=== PATIENT | male | born 1950 | race Caucasian/White ===

== ENCOUNTER 2017-11-27 08:45 | Day surgery (SDC) | payer MEDICARE, OTHER ==
[2017-11-23 08:56] VITALS: BMI 28.3
[~2017-11-27 08:45] MED LIST: LACTATED RINGERS 1,000 ML IV SCH
[2017-11-27 09:07] VITALS: TEMP 97.4
[2017-11-27] MEDS ORDERED: LIDOCAINE 1% 20 ML VIAL (10MG/ML) FOR IV START INTRADERMA ONE (09:18)
[2017-11-27] MEDS ORDERED: LIDOCAINE 1% INJ 10MG/ML (20 ML MDV) ONE (09:45)
[2017-11-27] MEDS ORDERED: PROPOFOL 10 MG/ML 20 ML VIAL IV ONE (09:45)
--- NOTE | 2017-11-27 10:14 | P.PCN ---
Date of Procedure: 11/27/17 Procedure(s) Performed: Procedure: Total colonoscopy. Preoperative diagnosis: Blood in the stools. Postoperative diagnosis: Exam within normal limits. Preparation: HalfLytely prep. Sedation: Was provided by anesthesia. Brief clinical history: The patient is 67-year-old male who is scheduled for this evaluation for finding of blood in his stools. He had no prior examination or family history of colon cancer. At this time, he has no abdominal complaints, bleeding or anemia. Procedure: With the patient on his left lateral decubitus position and after informed consent and adequate sedation, the perianal area was inspected and it did not show any fissures or fistulas. There were no masses felt on digital rectal examination. The Olympus CFQ 160L video colonoscope was then inserted in the rectum in the usual fashion and advanced to the cecum. The mucosa appeared healthy. No polyps or tumors were seen or any obvious pathology. I retroflexed the endoscope in the rectum before the endoscope was withdrawn. The patient tolerated the procedure well. Plan: The patient was reassured. He will follow-up with you as planned and I recommended repeat exam in 10 years.
[2017-11-27 10:23] VITALS: RESP 18
[2017-11-27 10:44] VITALS: BP 134/65; PULSE 71
== END 2017-11-27 11:23 | disposition home or self-care (01) ==
LOC: ORWHC2ENDO 08:45
DX: K92.1 Melena (principal); F17.210 Nicotine dependence, cigarettes, uncomplicated
CPT/HCPCS: 45378; J2001; J2704

== ENCOUNTER 2018-08-03 10:19 | Emergency (ER) | payer MEDICARE ==
[2018-08-03 10:26] VITALS: RESP 18
--- NOTE | 2018-08-03 10:49 | ED ---
Back Pain HPI - General Chief Complaint: Back Pain/Injury Stated Complaint: Back pain Time Seen by Provider: 08/03/18 10:38 Source: patient, RN notes reviewed, old records reviewed Limitations: no limitations - History of Present Illness Initial Comments: 68 showed mild history of chronic back pain presents emergency room stay with acute lower back pain rating on right leg. Patient reports symptoms started last night. He denies falls or trauma. Patient has no fevers, chills, abdominal pain, and denies saddle anestheisas. Patient reports he previously received injections into the back for pain relief, last one was in 2011. Patient denies any recent fever, chills, shortness of breath, chest pain, back pain, abdominal pain, nausea vomiting, numbness or tingling, dysuria or hematuria, constipation or diarrhea, headaches or visual changes, or any other current symptoms - Related Data Home Medications Medication Instructions Recorded Confirmed Acetaminophen/Diphenhydramine 1 tab PO HS PRN 08/03/18 08/03/18 [Tylenol PM Extra Strength] Ibuprofen [Motrin Ib] 800 mg PO TID PRN 08/03/18 08/03/18 Previous Rx's Medication Instructions Recorded Acetaminophen-Codeine 300-30mg 1 tab PO Q6H PRN 3 Days #12 tablet 08/03/18 [Tylenol w/codeine #3] Cyclobenzaprine [Flexeril] 10 mg PO TID #15 tab 08/03/18 Dexamethasone 0.75 mg PO DAILY #12 tab 08/03/18 Ibuprofen 600 mg PO TID #20 tablet 08/03/18 Allergies Allergy/AdvReac Type Severity Reaction Status Date / Time No Known Allergies Allergy Verified 08/03/18 10:50 Review of Systems ROS Statement: Those systems with pertinent positive or pertinent negative responses have been documented in the HPI. ROS Other: All systems not noted in ROS Statement are negative. Past Medical History Past Medical History: No Reported History Additional Past Medical History / Comment(s): chronic back pain History of Any Multi-Drug Resistant Organisms: None Reported Past Surgical History: Hernia Repair Additional Past Surgical History / Comment(s): UMBILICAL HERNIA REPAIR, TESTICLE SURGERY,VASECTOMY,INGUINAL HERNIA Past Anesthesia/Blood Transfusion Reactions: No Reported Reaction Past Psychological History: No Psychological Hx Reported Smoking Status: Current every day smoker Past Alcohol Use History: None Reported Past Drug Use History: None Reported - Past Family History Mother Family Medical History: No Reported History General Exam - General Exam Comments Initial Comments: 68 year old male. Moderate discomfort. Standing due to pain. Limitations: no limitations General appearance: alert Head exam: Present: atraumatic, normocephalic, normal inspection Eye exam: Present: normal appearance, PERRL, EOMI. Absent: scleral icterus, conjunctival injection, periorbital swelling ENT exam: Present: normal exam, mucous membranes moist Neck exam: Present: normal inspection. Absent: tenderness, meningismus, lymphadenopathy Respiratory exam: Present: normal lung sounds bilaterally. Absent: respiratory distress, wheezes, rales, rhonchi, stridor Cardiovascular Exam: Present: regular rate, normal rhythm, normal heart sounds. Absent: systolic murmur, diastolic murmur, rubs, gallop, clicks GI/Abdominal exam: Present: soft, normal bowel sounds. Absent: distended, tenderness, guarding, rebound, rigid Extremities exam: Present: normal inspection, full ROM, normal capillary refill. Absent: tenderness, pedal edema, joint swelling, calf tenderness Back exam: Present: normal inspection Neurological exam: Present: alert, oriented X3, CN II-XII intact Psychiatric exam: Present: normal affect, normal mood Skin exam: Present: warm, dry, intact, normal color. Absent: rash Course Vital Signs 08/03/18 10:24 Temperature 98.4 F Pulse Rate 108 H Respiratory 18 Rate Blood Pressure 192/89 O2 Sat by Pulse 99 Oximetry Medical Decision Making - Medical Decision Making 68-year-old male presents transferred stable acute lower back pain radiating down the right leg. Symptoms started last night. No falls or trauma. Patient had significant lumbar tenderness and sciatic notch tenderness. He is given IM Toradol and Decadron and morphine for pain. He is resting comfortably in bed at this time. X-rays of the lumbar spine were completed. This negative for any acute process. There is a T 12 age-indeterminate compression deformity noted. He has no significant tenderness at this time. Patient has been given prescription for short course of steroids plus relaxers and pain medication. - Radiology Data Radiology results: report reviewed fracture or malalignment seen within the lumbar spine. Extensive multilevel degenerative disease noted. Mild age-indeterminate compression deformity of T12 vertebral body. Correlating with point tenderness. Disposition Clinical Impression: Lumbar spine pain, Right sided sciatica Disposition: HOME SELF-CARE Condition: Good Instructions (If sedation given, give patient instructions): Acute Low Back Pain (ED), Sciatica (ED) Additional Instructions: Patient advised to follow-up with primary care physician. Patient should be taking the medications including anti-inflammatory steroid and muscle x-rays prescribed. Patient should your primary care physician in regards to following up with paint maker. Prescriptions: Dexamethasone 0.75 mg PO DAILY #12 tab Cyclobenzaprine [Flexeril] 10 mg PO TID #15 tab Ibuprofen 600 mg PO TID #20 tablet Acetaminophen-Codeine 300-30mg [Tylenol w/codeine #3] 1 tab PO Q6H PRN 3 Days #12 tablet PRN Reason: Pain Is patient prescribed a controlled substance at d/c from ED?: Yes When asked, does pt state using other controlled substances?: No If prescribed controlled substance>3 days was MAPS reviewed?: Prescribed <3 Days If opioid is for acute pain is fill amount 7 days or less?: Yes If Rx opioid, was Start Talking consent form obtained?: Yes Referrals: Jeffery Hubbard MD [Primary Care Provider] - 1-2 days Time of Disposition: 12:23
[2018-08-03] MEDS: CYCLOBENZAPRINE 10 MG TAB PO STA (11:34)
[2018-08-03] MEDS: KETOROLAC 60 MG/2 ML VIAL IM STA (11:34)
[2018-08-03] MEDS: MORPHINE SULFATE 4 MG/ML SYRINGE IM STA (11:35)
[2018-08-03] MEDS: DEXAMETHASONE SOD PHOSPHATE 10 MG/ML 1 ML VIAL IM STA (11:36)
--- NOTE | 2018-08-03 12:06 | XR ---
EXAMINATION TYPE: XR lumbar spine 2 or 3V DATE OF EXAM: 08/03/2018 CLINICAL HISTORY: Low back pain with no known injury TECHNIQUE: Frontal and lateral views of the lumbar spine were obtained. COMPARISON: None FINDINGS: There are 5 lumbar type vertebral bodies identified. There is sacralization of the L5 des tebral body. Extensive degenerative disc disease is seen of the lumbar spine with multilevel anterior osteophytes, intervertebral disc space narrowing, endplate sclerosis and facet arthropathy. Within t he visualized abdomen no suspicious calcifications or dilated bowel are seen. There is a very mild co mpression deformity of the T12 vertebral body with vertebral body height loss of less than 20%. This is age-indeterminate with no priors for comparison. IMPRESSION: 1. No acute fracture or or malalignment is seen in the lumbar spine. Extensive multilevel degenerativ e disc disease. 2. Mild age indeterminate compression deformity of the T12 vertebral body. Correlate with point tende rness.
[2018-08-03 13:12] VITALS: BP 177/74; PULSE 77; TEMP 98.1
== END 2018-08-03 13:12 | disposition home or self-care (01) ==
LOC: EC 10:19
DX: M54.41 Lumbago with sciatica, right side (principal); M43.8X4 Other specified deforming dorsopathies, thoracic region; F17.200 Nicotine dependence, unspecified, uncomplicated
CPT/HCPCS: 72100; 99284; 96372 ×3; J2270; J1100; J1885